=== PATIENT | female | born 2000 | race Caucasian/White ===

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

== ENCOUNTER 2020-07-07 09:30 | Outpatient (CLI) | payer OTHER ==
--- NOTE | 2020-07-07 11:55 | Ultrasound Report ---
PROCEDURE: OB First Trimester INDICATIONS: POSITIVE TEST OUTSIDE/PRIOR DATING DATA: Last menstrual period (LMP): 04/22/2020. LMP-based estimated date of delivery (RENEE): 01/27/2021. First dating scan (date and location): 07/07/2020. Estimated date of delivery (RENEE) from first dating scan: 01/16/2021. TECHNIQUE: Real-time scanning was performed of the fetus and maternal pelvic organs, with image documentation. COMPARISON: None available at the time of this dictation FINDINGS: Embryo: There is an intrauterine gestational sac seen, with a pole present, which measures 5.9 cm, which corresponds to an estimated gestational age of 12 weeks 3 days. cardiac activity is seen, with a measured heart rate of 168 bpm. A small amount of perigestational/subchorionic hemorrh age can be seen, which measures 1.8 x 0.4 x 0.7 cm. A normal-appearing yolk sac can be seen. Measurement variability in dating: +/- 4 weeks by LMP, +/- 7 days by mean sac diameter (use before 6 weeks gestation if crown-rump length not able to be measured), +/- 5 days by crown-rump length (6-12 weeks gestation). Maternal organs: Ovaries are unremarkable. Limited images through the kidneys demonstrate no hydron ephrosis. IMPRESSION: Single live intrauterine . A small amount of subchorionic hemorrhage can be seen. There is a greater than one week discrepancy between the estimated gestational age based upon these i mages and the given date of the last menstrual period. Please correlate with precise clinical dating. Reviewed by: Angel Larsen MD on 07/07/2020 10:54 AM HEYDI Approved by: Angel Laresn MD on 07/07/2020 10:54 AM HEYDI Station ID: [id number]
== END 2020-07-07 09:31 | disposition home or self-care (01) ==
LOC: DI 09:30
PROVIDERS: ATTEND Advanced Practice Midwife
DX: O20.8 Other hemorrhage in early pregnancy (principal); Z3A.12 12 weeks gestation of pregnancy
CPT/HCPCS: 76801

== ENCOUNTER 2020-07-10 08:00 | Outpatient (CLI) | payer OTHER ==
[2020-07-10 16:10] LABS: BILIRUBIN,URINE NEGATIVE (NEGATIVE); GLUCOSE, URINE (UA) NEGATIVE (NEGATIVE); KETONES,URINE (UA) NEGATIVE (NEGATIVE); LEUKOCYTE ESTERASE, URINE SMALL (NEGATIVE); NITRITE,URINE NEGATIVE (NEGATIVE); OCCULT BLOOD,URINE NEGATIVE (NEGATIVE); PROTEIN,URINE NEGATIVE (NEGATIVE); UROBILINOGEN,URINE 0.2 (NORMAL) E.U./dL (NORMAL)
[2020-07-10 16:22] LABS: BACTERIA,URINE Few /HPF (None Seen); CLARITY,URINE CLEAR (CLEAR); RBC,URINE None Seen /HPF (0-5); SQUAMOUS EPITHELIAL CELL,UR MANY Squamous (<= Few)
== END 2020-07-10 23:59 | disposition home or self-care (01) ==
LOC: LAB.R 08:00
PROVIDERS: ATTEND Advanced Practice Midwife
DX: Z36.89 Encounter for other specified antenatal screening (principal); Z34.90 Encounter for supervision of normal pregnancy, unspecified, unspecified trimester
CPT/HCPCS: 81001; 87086

== ENCOUNTER 2020-07-10 10:06 | Outpatient (CLI) | payer OTHER ==
[2020-07-10 10:27] LABS: BASOPHILS % (AUTO) 0.5 %; EOSINOPHILS # (AUTO) 0.1 10^3/uL (0.0-0.7); EOSINOPHILS % (AUTO) 1.6 %; LYMPHOCYTES # (AUTO) 1.7 10^3/uL (1.5-3.5); LYMPHOCYTES % (AUTO) 20.9 %; MEAN CORPUSCULAR HEMOGLOBIN 28.7 pg (27.0-31.0); MEAN CORPUSCULAR HGB CONC 34.5 g/dL (32.0-36.0); MEAN CORPUSCULAR VOLUME 83.2 fL (81.0-99.0); MEAN PLATELET VOLUME 9.2 fL (7.9-10.8); MONOCYTES # (AUTO) 0.4 10^3/uL (0.0-1.0); MONOCYTES % (AUTO) 5.1 %; NEUTROPHILS # (AUTO) 5.8 10^3/uL (1.5-6.6); NEUTROPHILS % (AUTO) 71.7 %; PLT - PLATELET COUNT 291 10^3/uL (130-450); RED BLOOD COUNT 4.88 10^6/uL (4.20-5.40); RED CELL DISTRIBUTION WIDTH 12.2 % (12.0-15.0); WHITE BLOOD COUNT 8.1 x10^3/uL (4.8-10.8)
[2020-07-11 13:09] LABS: HEPATITIS C ANTIBODY NON-REACTIVE (NON-REACTIVE)
[2020-07-11 13:23] LABS: HEPATITIS B SURFACE ANTIGEN NON-REACTIVE (NON-REACTIVE)
[2020-07-11 16:09] LABS: HIV AG/AB 4TH GEN NON-REACTIVE (NON-REACTIVE)
== END 2020-07-10 10:07 | disposition home or self-care (01) ==
LOC: LAB 10:06
PROVIDERS: ATTEND Advanced Practice Midwife
DX: Z34.90 Encounter for supervision of normal pregnancy, unspecified, unspecified trimester (principal); Z36.89 Encounter for other specified antenatal screening
CPT/HCPCS: 36415; 81599; 85025; 86592; 86762; 86787; 86803; 86850; 86900; 86901; 87340; 87389

== ENCOUNTER 2020-08-07 09:48 | Outpatient (CLI) | payer OTHER | END 2020-08-07 09:49 | disposition home or self-care (01) | LOC: LAB 09:48 | PROVIDERS: ATTEND Advanced Practice Midwife | DX: Z34.90 Encounter for supervision of normal pregnancy, unspecified, unspecified trimester (principal); Z36.89 Encounter for other specified antenatal screening | CPT/HCPCS: 36415; 81220; 81243; 81329; 81511; 81599 ==

== ENCOUNTER 2020-08-31 08:49 | Outpatient (CLI) | payer OTHER ==
--- NOTE | 2020-08-31 22:48 | Ultrasound Report ---
PROCEDURE: OB Detailed Eval INDICATIONS: SUPERVISION OF OUTSIDE/PRIOR DATING DATA: Last menstrual period (LMP): 04/22/2020. LMP-based estimated date of delivery (RENEE): 01/27/2021. First dating scan (date and location): 07/07/2020. Estimated date of delivery (RENEE) from first dating scan: 01/16/2021. TECHNIQUE: Real-time scanning was performed of the fetus, with image documentation and biometric measurements. Endovaginal scanning: Not performed COMPARISON: 07/07/2020 FINDINGS: General: A single living intrauterine gestation is present. Presentation: Breech Placenta: Placental position is anterior, without previa. Amniotic fluid index: 15 cm, 57th percentile for gestational age. Largest vertical pocket measured 5.1 cm. heart rate: 128 beats per minute. Maternal cervical canal: 6.4 cm long; normal length is 2.5 cm or more. biometrics: Biparietal diameter: 4.9 cm, correlating with 20 weeks and 6 days Head circumference: 18.3 cm, correlating with 20 weeks and 5 days Abdominal circumference: 15.3 cm, correlating with 20 weeks and 4 days Femur length: 3.1 cm, correlating with 19 weeks and 3 days Estimated gestational age from initial scan: not applicable. Composite gestational age from present scan: 20 weeks and 2 days Estimated weight and percentile: 334 [address] which [address] the fetus within the 36th percentile for g estational age. Measurement variability in biometric dating: +/- 10 days from 12-20 weeks gestation, +/- 2 weeks from 20-30 weeks gestation, +/- 3 weeks at 30 weeks gestation or later. Anatomic survey: Neuro: Ventricles are normal at less than 10 mm. Cisterna magna is normal at 3-11 mm. Cerebellum i s normal in size and morphology. Nuchal skin fold: Normal at less than 6 mm between 14 and 20 weeks gestational age. Face: Nose and lips, facial profile are normal. Spine: No evidence for spina bifida. Heart: 4-chambered heart is present, with normal ventricular outflow tracts. Diaphragm: Diaphragm is intact. Stomach: Left-sided stomach is present. Kidneys: No hydronephrosis. Normal is less than 5 mm in 2nd trimester, less than 7 mm in 3rd trimester. Cord: 3 vessel cord has orthotopic insertion. Bladder: Normal in size. Extremities: All 4 extremities are visualized. IMPRESSION: 1. Single living intrauterine gestation with an estimated sonographic gestational age of approximatel y 20 weeks and 2 days. Expected interval growth has occurred. Estimated weight measures 334 g w hic places the fetus within the 36th percentile for gestational age. 2. Normal routine second trimester anatomic screening survey. Reviewed by: Pato Lam MD on 08/31/2020 10:46 PM PDT Approved by: Pato Lam MD on 08/31/2020 10:46 PM PDT Station ID: [id number]
== END 2020-08-31 08:50 | disposition home or self-care (01) ==
LOC: DI 08:49
PROVIDERS: ATTEND Advanced Practice Midwife
DX: Z34.90 Encounter for supervision of normal pregnancy, unspecified, unspecified trimester (principal); Z36.89 Encounter for other specified antenatal screening
CPT/HCPCS: 76811

== ENCOUNTER 2020-10-30 09:47 | Outpatient (CLI) | payer OTHER ==
[2020-10-30 11:17] LABS: HGB - HEMOGLOBIN 12.6 g/dL (12.0-16.0); MEAN CORPUSCULAR HEMOGLOBIN 29.6 pg (27.0-31.0); MEAN CORPUSCULAR HGB CONC 33.5 g/dL (32.0-36.0); MEAN CORPUSCULAR VOLUME 88.5 fL (81.0-99.0); MEAN PLATELET VOLUME 9.4 fL (7.9-10.8); RED BLOOD COUNT 4.25 10^6/uL (4.20-5.40); RED CELL DISTRIBUTION WIDTH 13.3 % (12.0-15.0)
== END 2020-10-30 09:48 | disposition home or self-care (01) ==
LOC: LAB 09:47
PROVIDERS: ATTEND Advanced Practice Midwife
DX: Z36.89 Encounter for other specified antenatal screening (principal)
CPT/HCPCS: 36415; 82950; 85027

== ENCOUNTER 2020-11-13 07:55 | Outpatient (CLI) | payer OTHER | END 2020-11-13 07:56 | disposition home or self-care (01) | LOC: LAB 07:55 | PROVIDERS: ATTEND Advanced Practice Midwife | DX: O99.810 Abnormal glucose complicating pregnancy (principal) | CPT/HCPCS: 36415; 82951; 82952 ==

== ENCOUNTER 2020-12-11 09:49 | Outpatient (CLI) | payer OTHER ==
[2020-12-11 09:59] VITALS: BP 121/75
--- NOTE | 2020-12-11 11:26 | PROVIDER PROGRESS NOTE ---
- HPI Chief Complaint: Vaginal bleeding Current : Current EDU 01/16/21 Gestation 34 Weeks and 6 Days 1 Para 0 Vital Signs Temperature 36.8 C 12/11/20 09:56 Heart Rate 69 12/11/20 09:56 Respiratory Rate 18 12/11/20 09:56 Blood Pressure 121/75 12/11/20 09:56 O2 Saturation 98 12/11/20 09:56 Temperature 36.8 C 12/11/20 09:56 Heart Rate 69 12/11/20 09:56 Respiratory Rate 18 12/11/20 09:56 Blood Pressure 121/75 12/11/20 09:56 O2 Saturation 98 12/11/20 09:56 - Procedures NST Procedure: NST Procedure Start Date 12/11/20 Start Time 09:55 Stop Time 11:10 Vibroacoustic Stimulation Used No Patient States Movement Yes - Plan Plan: Linda is a 20yo at 34.6wks gestation who presents for vaginal bleeding. She reports brownish red bleeding x1 with wiping on rising this morning. None on her underwear, and non in the toilet. She endorses movement and denies any pain or contractions at this time. NST perform date: 12/10/20 NST read date: 12/10/20 Impression: Reactive Reports feeling mild tightening when ctx picked up on TOCO After monitoring and up to toilet, no increase in bleeding. Plan: Discharge home with labor precautions Educated to return or call if any further or worsening bleeding Final Diagnosis: Vaginal Bleeding in after 20wks
== END 2020-12-11 11:15 | disposition home or self-care (01) ==
LOC: WFO 09:49 → FBP 09:51 → WFO 11:15
PROVIDERS: ATTEND Advanced Practice Midwife
DX: O46.92 Antepartum hemorrhage, unspecified, second trimester (principal); Z3A.20 20 weeks gestation of pregnancy
CPT/HCPCS: 99213

== ENCOUNTER 2020-12-25 08:00 | Outpatient (CLI) | payer OTHER | END 2020-12-25 23:59 | disposition home or self-care (01) | LOC: LAB.R 08:00 | PROVIDERS: ATTEND Nurse Practitioner Obstetrics & Gynecology | DX: Z36.85 Encounter for antenatal screening for Streptococcus B (principal) | CPT/HCPCS: 87797 ==

== ENCOUNTER 2020-12-25 12:24 | Outpatient (CLI) | payer OTHER ==
[2020-12-25 13:02] VITALS: BP 113/73
--- NOTE | 2020-12-26 11:27 | PROCEDURE REPORT ---
- HPI Current EDU 01/16/21 Gestation 36 Weeks and 6 Days 1 Para 0 Vital Signs Temperature 37.3 C 12/25/20 12:36 Heart Rate 75 12/25/20 12:36 Respiratory Rate 16 12/25/20 12:36 Blood Pressure 123/81 H 12/25/20 12:36 O2 Saturation 98 12/25/20 12:36 Temperature 37.3 C 12/25/20 12:36 Heart Rate 75 12/25/20 12:36 Respiratory Rate 16 12/25/20 12:36 Blood Pressure 113/73 12/25/20 13:02 O2 Saturation 98 12/25/20 12:36 - NST Procedure NST Procedure Start Date 12/25/20 Start Time 12:32 Stop Time 13:05 Vibroacoustic Stimulation Used No Patient States Movement Yes - Results and Plan Findings/Impression: Linda is a 20yo at 36.6wks gestation who presents for vaginal bleeding. She reports reddish brown bleeding on her underwear today, with none in the toilet. She endorses movement and denies any pain or contractions at this time. NST perform date: 12/25/2020 NST read date: 12/25/2020 Impression: Reactive Reports feeling mild tightening when ctx picked up on TOCO After monitoring and up to toilet, no further bleeding. Plan: Discharge home with labor precautions Educated to return or call if any further or worsening bleeding Final Diagnosis: Vaginal Bleeding in after 20wks
== END 2020-12-25 14:30 | disposition home or self-care (01) ==
LOC: WFO 12:24 → FBP 12:25 → WFO 14:30
PROVIDERS: ATTEND Advanced Practice Midwife
DX: O46.8X3 Other antepartum hemorrhage, third trimester (principal); Z36.85 Encounter for antenatal screening for Streptococcus B; Z3A.36 36 weeks gestation of pregnancy
CPT/HCPCS: 87797; 99212

== ENCOUNTER 2020-12-26 04:25 | Inpatient (IN) | payer OTHER ==
[2020-12-26] MEDS ORDERED: fentaNYL 100 MCG/2 ML VIAL IVP PRN (05:02)
[2020-12-26] MEDS ORDERED: METHYLERGONOVINE 0.2 MG/ML VIAL IM PRN (05:02)
[2020-12-26] MEDS ORDERED: SODIUM CHLORIDE FLUSH 0.9% 10 ML SYRINGE IVP PRN (05:02)
[2020-12-26] MEDS ORDERED: OXYTOCIN 10 UNIT/ML VIAL IM PRN (05:02)
[2020-12-26] MEDS ORDERED: LIDOCAINE-MPF 1% 30 ML VIAL ID PRN (05:02)
[2020-12-26] MEDS ORDERED: ONDANSETRON 4 MG/2 ML VIAL IVP PRN ×2 (05:02→06:23)
[2020-12-26] MEDS ORDERED: CARBOPROST TROMETHAMINE 250 MCG/ML AMP IM PRN (05:02)
[2020-12-26] MEDS ORDERED: TRANEXAMIC ACID IN NACL 1,000 MG/100 ML BAG IV PRN (05:02)
[2020-12-26] MEDS ORDERED: miSOPROStoL 200 MCG TABLET BC PRN (05:02)
[2020-12-26] MEDS ORDERED: OXYTOCIN/SODIUM CHLORIDE 500 ML IV PRN ×2 (05:02)
[2020-12-26] MEDS ORDERED: METOCLOPRAMIDE 10 MG/2 ML VIAL IVP PRN ×2 (05:02→06:23)
[2020-12-26] MEDS: LACTATED RINGERS 1,000 ML IV SCH ×2 (05:40→10:15)
[2020-12-26 05:53] LABS: BASOPHILS # (AUTO) 0.1 10^3/uL (0.0-0.1); BASOPHILS % (AUTO) 0.4 %; EOSINOPHILS # (AUTO) 0.1 10^3/uL (0.0-0.7); EOSINOPHILS % (AUTO) 0.9 %; HGB - HEMOGLOBIN 14.4 g/dL (12.0-16.0); LYMPHOCYTES # (AUTO) 2.8 10^3/uL (1.5-3.5); LYMPHOCYTES % (AUTO) 20.3 %; MEAN CORPUSCULAR HEMOGLOBIN 29.6 pg (27.0-31.0); MEAN CORPUSCULAR HGB CONC 34.5 g/dL (32.0-36.0); MEAN CORPUSCULAR VOLUME 85.8 fL (81.0-99.0); MEAN PLATELET VOLUME 10.6 fL (7.9-10.8); MONOCYTES # (AUTO) 0.9 10^3/uL (0.0-1.0); MONOCYTES % (AUTO) 6.2 %; NEUTROPHILS # (AUTO) 9.8 10^3/uL (1.5-6.6); NEUTROPHILS % (AUTO) 71.5 %; PLT - PLATELET COUNT 197 10^3/uL (130-450); RED BLOOD COUNT 4.86 10^6/uL (4.20-5.40); WHITE BLOOD COUNT 13.7 x10^3/uL (4.8-10.8)
[2020-12-26] MEDS ORDERED: TERBUTALINE 1 MG/ML VIAL SUBQ SCH (06:00)
[2020-12-26] MEDS ORDERED: ROPIVACAINE 0.2% 200 MG/100 ML BAG EP ONE (06:07)
[2020-12-26] MEDS ORDERED: NALBUPHINE 10 MG/ML AMP IVP PRN (06:23)
[2020-12-26] MEDS ORDERED: diphenhydrAMINE INJ 50 MG/ML VIAL IVP PRN (06:23)
[2020-12-26] MEDS ORDERED: ePHEDrine 50 MG/ML VIAL IVP PRN (06:23)
[2020-12-26] MEDS ORDERED: ROPIVACAINE 0.2% 200 MG/100 ML BAG EP PRN (06:23)
[2020-12-26] MEDS ORDERED: NALOXONE 0.4 MG/ML VIAL IVP PRN (06:23)
--- NOTE | 2020-12-26 07:11 | HISTORY & PHYSICAL EXAMINATION ---
Admit History - Visit Reason Visit Reason: Contractions - : 1 Parity: 0 Premature: 0 Ectopic: 0 : 0 Care: positive: Other ([facility]) Risk/History: positive: None Complications This : positive: None Smoking Status: Never smoker - Mother's Labs Mother's Blood Type: positive: B Mother's RH: positive: Positive GBS: positive: Other (GBS collected and not yet resulted) Rubella Status: positive: Immune Meds/Allgy - Allergies Allergies/Adverse Reactions: Allergies Allergy/AdvReac Type Severity Reaction Status Date / Time No Known Drug Allergies Allergy Verified 12/26/20 05:15 Review of Systems - All Other Systems All Other Systems: reports: Reviewed and negative Physical - Abdominal Exam Vital Signs: Temp Pulse Resp BP Pulse Ox 36.5 C 61 18 123/94 H 98 12/26/20 05:36 12/26/20 05:36 12/26/20 05:36 12/26/20 05:36 12/26/20 04:41 Contraction Frequency (min/apart): 4-6min Contraction Intensity: positive: Moderate Uterine Resting Tone: positive: Soft - Monitoring Heart Rate Baseline: 135 Strip Review: positive: Category I - Presentation Presentation: positive: Vertex - Vaginal Exam Membranes: positive: Membranes intact Dilation (in cm): 5 Effacement (%): 90 Station: positive: -1 Cervical Position: positive: Anterior - Other Notes Labor Progress Note/Additional Text: -20yo at 37.0 wks gestation who presents to Labor and Delivery with complaints of contractions that started around 0200 and intensified, prompting her to present to L&D around 0430 -Reports movement -Denies ctx/VB/LOF - care with [facility] which has been adequate - Complications *GBS unknown- collected at 36.5wks- awaiting results *VZV non-immune- vax to be offered -Dating Criteria * Initial U/S: at 12.3wks not c/w LMP (01/27/2021) for final RENEE of 01/16/2021 -OB Hx *G1: current -Medications * vitamin-daily -Allergies *NKDA *Pollen *Shellfish (mild) -Medical History *[place]-Schlatters *Acne vulgaris -Surgical History *ORIF of Left arm- 2011 -Family History *Mother- Endometriosis, family history of HTN -Social History *Non contributory - Labs, Immunizations, and Findings Initial U/S: at 12.3wks not c/w LMP (01/27/2021) for final RENEE of 01/16/2021 B pos/Rubella immune VZV-non immune offer , patient aware Gentic testing: Quad- neg; CF(Fragile x, SMA)- neg FAS: 08/31/20 WNL. Posterior placenta, no previa. ZANDER WNL. 3VC. Size c/w dating. Glucola imaired 1 hour 158; 3hr GTT WNL (92, 133, 151, 157) TDAP 10/30/2020 Influenza declined GBS collected @ 36.5wks gestation HSV: denies self and partner Breast pump Rx provided MOD: . Desires epidural. FOB: Joseph. LOLI Lynch. pp contraception: POPs PAP: 07/10/2020-neg -SVE per RN 5/90%/-1 -Vertex by digital exam -EFW by joe's 7-7.5# -FHTs per flowsheet -Assessment *20yo at 37.0wks in active labor * Heart Tones- Category I -Plan *Admit to L&D *Monitoring- Continuous *Comfort measures available- position changes, whirlpool tub, fentanyl, and epidural per maternal preference *Diet/Activity- per maternal preference *Anticipate Plan for Labor - Plan For Labor I expect patient to be DC'd or transferred within 96 hours.: Yes
[2020-12-26] MEDS ORDERED: HYDROCORTISONE 1% CREAM 28 GM TUBE PR PRN (12:59)
[2020-12-26] MEDS ORDERED: WITCH HAZEL/GLYCERIN 1 PAD TOP PRN (12:59)
[2020-12-26] MEDS: ACETAMINOPHEN 500 MG TABLET PO SCH (13:00)
--- NOTE | 2020-12-26 13:08 | DELIVERY NOTE ---
Delivery Note - Labor Labor: positive: Spontaneous - Delivery Method Delivery Method: positive: Spontaneous vaginal delivery - Presentation Presentation: positive: Vertex, OA - occiput anterior - Nuchal Cord Nuchal Cord: positive: Present (delivered through) - Anesthetic Anesthetic Type: - Amniotic Fluid Description Amniotic Fluid Description: positive: Clear - Laceration Laceration: positive: 1st degree, Perineal, Periurethral - Suture Suture Type: positive: Vicryl Suture Size: positive: 3-0 - Delivery Outcome Delivery Outcome: positive: Livebirth - [place]: positive: Placed in direct skin contact with mother, Stimulated, Adger used sex: positive: Male : 9 : 9 - Cord Cord: positive: 3 vessels - Placenta Placenta: positive: Intact, Spontaneous - Estimated Blood Loss Estimated Blood Loss (in cc): 100 - Post Delivery Events Post Delivery Events: positive: No post delivery events - Delivery Comments (Free Text/Narrative) Delivery Comments (Free Text/Narrative): Note: Labor: This 20 year old, , @37.0 wks gestation by 12.3 week Ultrasound, confirmed by LMP, presented @ approx. 0430 in active labor. Cervix was 5/90-1 and vertex. FHR pattern demonstrated 130 baseline in a Category I pattern. Normal labor course. Epidural placed upon maternal request. SROM occurred @ 1115 and amount and color of fluid were noted to be moderate and clear. Unknown GBS : Normal of a 3295gm male named Evelio on 01/05/2021 @ 1231. Nuchal present but baby birthed through with assistance of FOB after delivery of the head. The was placed on maternal abdomen, stimulated, dried and placed skin to skin. Apgars 9 at one minute and 9 at five minutes. The umbilical cord was allowed to stop pulsating at which time it was doubly clamped by CNM and cut by FOB. Pitocin administered via IV for hemostasis.. Fundal massage and gentle cord traction applied for active third stage management. Cord blood was obtained. Placenta delivered spontaneously and intact at 1242. Three vessel cord. EBL 100mL. Fourth Stage: Uterine fundus firm and without excessive bleeding. The perineum, vagina, and cervix were inspected and found to have sustained a first degree right periurethral tear, and a small first degree perineal tear, both were repaired with 3-0 vicryl in standard fashion under sterile conditions.. Vaginal examination following repair was done. Tissues well approximated. initiated. Family bonding well. Both mother and baby are in stable condition.
[2020-12-26] MEDS: IBUPROFEN 600 MG TABLET PO SCH ×2 (18:13→23:41)
[2020-12-27] MEDS: IBUPROFEN 600 MG TABLET PO SCH ×4 (06:35→23:47)
[2020-12-27] MEDS: DOCUSATE SODIUM 100 MG CAPSULE PO PRN ×2 (08:03→21:09)
--- NOTE | 2020-12-27 11:00 | PROVIDER PROGRESS NOTE ---
Subjective - Prog Note Date Prog Note Date: 12/27/20 Prog Note Time: 10:52 - Subjective Pt reports feeling: Improved Subjective: S: Linda is resting in the recliner, holding sleeping baby, supportive at her side. She reports was a bit of a struggle last night, however the last two feeds have gone really well. Baby just breastfed for 30mins. She reports her bleeding as "like a heavy period" with changing her pad approx every two hours (which it is never full). O: Lochia Rubra A: 20yo s/p on pp day 1 well Normal recovery P: Continue with routine care Evaluate for discharge home tomorrow Objective - Vital Signs/Intake & Output Vital Signs: Vital Signs x48h Temp Pulse Resp BP 12/27/20 07:40 36.7 C 65 17 119/75 Intake & Output: Intake & Output 12/24/20 12/25/20 12/26/20 12/27/20 23:59 23:59 23:59 23:59 Intake Total 687.5 Output Total 1525 Balance -837.5 - Lab Results Fish Bones: 12/26/20 05:30 Other Labs: Lab Results x24hrs 12/26/20 Range/Units 07:20 Coronavirus (PCR) NEGATIVE
[2020-12-27] MEDS: ACETAMINOPHEN 500 MG TABLET PO SCH (20:00)
[2020-12-28] MEDS: IBUPROFEN 600 MG TABLET PO SCH ×2 (06:04→12:23)
[2020-12-28 07:31] VITALS: BP 114/71
[2020-12-28] MEDS: ACETAMINOPHEN 500 MG TABLET PO SCH (08:51)
[2020-12-28] MEDS: DOCUSATE SODIUM 100 MG CAPSULE PO PRN (08:51)
--- NOTE | 2020-12-28 09:42 | DISCHARGE SUMMARY ---
Discharge Summary Discharge Date: 12/28/20 Condition at Discharge: Good Discharge Disposition: 01 Home, Self Care - HPI History of Present Illness: Admit Date 12/26/2020 Discharge Date 12/28/2020 Diagnosis on Admission: 1. A 20yo at 37.0 week intrauterine 2. Early Active Labor 3. GBS unknown Diagnosis on Discharge 1. A 20yo s/p spontaneous vaginal delivery on 12/26/2020 2. Normal recovery 3. GBS negative 4. VZV non-immune Brief History: She is a patient at [facility] who presented on 12/26/2020 with complaints of contractions. The patient was found to contract every 1 to 5 minutes and her cervix was 5cm dilated, 90%effaced, and -1 station. She as augmented with pitocin and spontaneously delivered a viable 3295g male infant named Evelio. Apgars were 9 and 9- and 1 and 5 minutes respectively. EBL 100mL. The patient has a small 1st degree laceration that was repaired with 3-0 vicryl in usual fashion under sterile conditions. She has been doing well in her course. She is ambulating and tolerating a regular diet. She is urinating without difficulty and her lochia is normal. Her pain is well controlled with oral medications. She will be discharged home today on day #2 without need for prescriptions. She intends to follow up with Midwifery at [facility] in 1, and 6 weeks for routine visit. She has been given precautions to call if she has any worsening fevers, chills, abdominal pain, increased bleeding or foul smelling vaginal lochia. - ALLERGIES Allergies/Adverse Reactions: Allergies Allergy/AdvReac Type Severity Reaction Status Date / Time No Known Drug Allergies Allergy Verified 12/26/20 05:15 - LABS Result Diagrams: 12/26/20 05:30
--- NOTE | 2020-12-28 09:42 | Discharge Plan ---
Discharge Plan Problem Reviewed?: Yes Disposition: Home, Self Care Condition: Good Additional Instructions or Follow Up instructions: Follow up with Midwifery in 1 and 6 weeks No Smoking: If you smoke, Please STOP! Call for help. Follow-up with: Loraine Moser ARNP [Provider Admit Priv/Credential] -
--- NOTE | 2020-12-28 13:36 | Labor Flowsheet ---
Labor Flowsheet Datetime Report Generated by CPN: 12/28/2020 13:36 Datetime: 12/28/2020 07:14 VITAL SIGNS NBP Sys/Jonelle/Mean (mmHg): 114 : 71 : 78 Pulse: 65 Datetime: 12/26/2020 14:30 SpO2 (%): 100 PAIN Pain Scale: 0 Datetime: 12/26/2020 13:15 Temperature (C): 36.7 Datetime: 12/26/2020 12:41 Patient Care Comments: repair Datetime: 12/26/2020 12:34 Stage of : Recovery MEDICATIONS Medication Comments: pit up Datetime: 12/26/2020 12:31 LaborFlag: Antepartum Datetime: 12/26/2020 12:26 UTERINE ACTIVITY Monitor Mode: External Frequency (min): 2-3 Quality: Strong Duration (sec): 60+ Pattern: Normal: <= 5 Contractions in 10 Minutes Resting Tone (Palpate): Relaxed ASSESSMENT A Monitor Mode: Telemetry FHR Baseline Changes: No Baseline Change Variability: Moderate 6-25 bpm Accelerations: None Decelerations: None Datetime: 12/26/2020 12:07 STAGE 2 Pushing: Coached on Pushing; Urge to Push Pushing Position: Pushing with Contractions Pushing Progress: Descent with Pushing Stage 2 Comments: Start pushing Datetime: 12/26/2020 12:00 Actions for Decelerations: Sterile Vaginal Exam; Provider Notified Category: Category II Pain Presence: None/Denies Anesthesia Level Check: T9 Datetime: 12/26/2020 11:59 VAGINAL EXAM Dilatation (cm): 10.0 Effacement (%): 100 Station: 3 Exam by: H. Ehsan Datetime: 12/26/2020 11:49 Monitor Interventions for UA: [place] Adjusted Datetime: 12/26/2020 11:48 Monitor Interventions for FHR: Ultrasound Adjusted Datetime: 12/26/2020 11:33 Communication Comments: lab called for GBS result. GBS is still pending and will not be resulted t ill sometime tonight. Loraine updated will tx pt. as unknown for now. Datetime: 12/26/2020 11:30 Comments: short periods of minimal variability then back to moderate Datetime: 12/26/2020 11:21 Hygiene: [facility] Datetime: 12/26/2020 11:15 Membrane Status: Ruptured Membranes Rupture Method: Spontaneous Amniotic Fluid Color: Clear Amniotic Fluid Amount: Moderate Amniotic Fluid Odor: None Datetime: 12/26/2020 11:12 Patient Position/Activity: Left Lateral Datetime: 12/26/2020 11:00 FHR Baseline Rate : 120 Datetime: 12/26/2020 10:01 Contraction Comments: coupling Datetime: 12/26/2020 09:07 Vaginal Bleeding: Normal Show Cervix, Position: Anterior Datetime: 12/26/2020 08:30 Pain Coping: Sleeping Datetime: 12/26/2020 07:30 I/O Interventions: Nichols Cath Inserted Datetime: 12/26/2020 07:04 COMMUNICATION Communication: Report Given to @ carolynRN Datetime: 12/26/2020 06:50 Pain Relief Measures: Epidural Given Datetime: 12/26/2020 06:33 Provider Reviewed Strip: Yes Notification Reason: Status Update; Status; Labor Status; Pain Datetime: 12/26/2020 06:30 Oxygen Method: Room Air Datetime: 12/26/2020 06:16 Respirations: 22 Datetime: 12/26/2020 06:15 Epidural Procedure Other: Pump Started Datetime: 12/26/2020 06:09 Epidural Procedure: Test Dose Datetime: 12/26/2020 06:04 PROCEDURE TIME OUT Procedure Verify: Correct Patient Identity; Correct Side and Site are Marked; Accurate Procedure Co nsent Form; Agreement on Procedure to be Done; Correct Patient Position; Relevant Images and Results are Properly Labeled and Displayed; Addressed Need to Administer Antibiotics or Fluids for Irrigation ; Safety Precautions Based on Patient History or Medication Use ANESTHESIA Anesthesia Plans: Epidural Epidural Positioning: Sitting Datetime: 12/26/2020 05:30 Pain Type: Contraction Pain Location: Abdomen; Back Pain Assessment Comments: requests epidural, [employer] called PATIENT CARE IV/Blood Work: IV Started; IV Bolus Started; IV Bolus Given ml @ 999; Labs Drawn with IV Start; IV Bag Number @ 1 Comfort Measures: Breathing/Relaxation; Coaching
== END 2020-12-28 13:34 | disposition home or self-care (01) | DRG 807 ==
LOC: WFO 04:25 → FBP 04:31 → WFO 05:01 → FBP 05:13
PROVIDERS: ADMIT Advanced Practice Midwife; ATTEND Advanced Practice Midwife
PROC: 10E0XZZ Delivery of Products of Conception, External Approach (ICD-10-PCS; principal; 2020-12-26)
DX: O70.0 First degree perineal laceration during delivery (principal); Z37.0 Single live birth; O69.81X0 Labor and delivery complicated by cord around neck, without compression, not applicable or unspecified; Z3A.37 37 weeks gestation of pregnancy; Z20.822 Contact with and (suspected) exposure to COVID-19
CPT/HCPCS: 36415; 85025; 86850; 86900; 86901; 87635; 99213; A9270; J7120

== ENCOUNTER 2023-01-23 16:19 | Outpatient (CLI) | payer OTHER ==
[2023-01-23 16:39] VITALS: BP 120/82
--- NOTE | 2023-01-23 17:15 | PROVIDER PROGRESS NOTE ---
- HPI Chief Complaint: Labor Current : Vital Signs Temperature 98.6 F 01/23/23 16:26 Heart Rate 98 01/23/23 16:26 Respiratory Rate 16 01/23/23 16:26 Blood Pressure 120/82 H 01/23/23 16:26 Temperature 98.6 F 01/23/23 16:27 Heart Rate 98 01/23/23 16:27 Respiratory Rate 16 01/23/23 16:27 Blood Pressure 120/82 H 01/23/23 16:27 O2 Saturation 100 01/23/23 16:27 If not protocol: Oxygen Flow, liters/minute - Procedures OB Procedure Performed: NST Diagnosis/Indication for NST: labor NST Procedure: NST Procedure Start Time 12:32 Stop Time 13:05 EFM: 140s, moderate variability, positive 15x15 accelerations, variable deceleration [place]: no contractions NST reactive/Cat 1 tracing Performed and read 01/23/23 Service Date of procedure: 01/23/23 - Plan Plan: 22yo at 34.6w presenting with contractions earlier today. Denies contractions currently. Denies leaking fluid or bleeding. Good movement. care at and uncomplicated. VSS GEN: NAD CV: Regular rate Resp: Breathing unlabored Abd: soft, nt Ext: nt 22yo at 34.6w, false labor. - NST reactive - Labor precautions reviewed. 12/2020 at 37.0w. Recommended light activities at this time. - Follow up this week as scheduled 01/29
== END 2023-01-23 17:21 | disposition home or self-care (01) ==
LOC: WFO 16:19 → FBP 16:21 → WFO 17:21
PROVIDERS: ATTEND Obstetrics & Gynecology
DX: O47.03 False labor before 37 completed weeks of gestation, third trimester (principal); Z3A.34 34 weeks gestation of pregnancy
CPT/HCPCS: 59025; 99213

== ENCOUNTER 2023-01-29 08:00 | Outpatient (CLI) | payer OTHER | END 2023-01-29 23:59 | disposition home or self-care (01) | LOC: LAB.R 08:00 | PROVIDERS: ATTEND Obstetrics & Gynecology | DX: Z34.83 Encounter for supervision of other normal pregnancy, third trimester (principal); Z36.89 Encounter for other specified antenatal screening | CPT/HCPCS: 87797 ==

== ENCOUNTER 2023-02-02 13:51 | Outpatient (CLI) | payer OTHER ==
[2023-02-02 14:46] VITALS: BP 114/72
--- NOTE | 2023-02-02 16:03 | PROCEDURE REPORT ---
- HPI Diagnosis/Indication for NST: labor Current EDU 02/28/23 Gestation 36 Weeks and 2 Days 2 Para 1 Vital Signs Temperature 98.1 F 02/02/23 14:13 Heart Rate 96 02/02/23 14:13 Respiratory Rate 16 02/02/23 14:13 Blood Pressure 114/72 02/02/23 14:13 Temperature 98.1 F 02/02/23 14:13 Heart Rate 96 02/02/23 14:13 Respiratory Rate 16 02/02/23 14:13 Blood Pressure 114/72 02/02/23 14:13 O2 Saturation If not protocol: Oxygen Flow, liters/minute - NST Procedure NST Procedure Start Date 02/02/23 Start Time 14:16 Stop Time 14:54 Vibroacoustic Stimulation Used No Patient States Movement Yes: decreased from normal activity EFM: 130s, moderate variability, positive 15x15 accelerations, one variable deceleration [place]: occasional contractions NST reactive/Cat 1 Performed and read on 02/02/23 - Results and Plan Plan: 22yo at 36.2w presenting with occasionally painful contractions all day. Denies leaking fluid or vaginal bleeding. Good movement. care uncomplicated. VSS GEN: NAD CV: Regular rate Resp: Breathing unlabored Abd: soft, nt Ext: nt SVE 1/50/-3 posterior 22yo at 36.2w, false labor - NST reactive - Discharge to home with labor precautions - Follow up 1w
== END 2023-02-02 15:10 | disposition home or self-care (01) ==
LOC: WFO 13:51 → FBP 13:53 → WFO 15:10
PROVIDERS: ATTEND Obstetrics & Gynecology
DX: O47.03 False labor before 37 completed weeks of gestation, third trimester (principal); Z3A.36 36 weeks gestation of pregnancy
CPT/HCPCS: 59025; 99213

== ENCOUNTER 2023-02-12 15:50 | Outpatient (CLI) | payer OTHER ==
[2023-02-12 16:41] VITALS: BP 113/74
--- NOTE | 2023-02-12 17:24 | PROCEDURE REPORT ---
- HPI Diagnosis/Indication for NST: labor Vital Signs Temperature 98.4 F 02/12/23 16:07 Heart Rate 85 02/12/23 16:07 Respiratory Rate 20 02/12/23 16:07 Blood Pressure 113/74 02/12/23 16:07 Temperature 98.4 F 02/12/23 16:07 Heart Rate 84 02/12/23 16:07 Respiratory Rate 20 02/12/23 16:07 Blood Pressure 113/74 02/12/23 16:07 O2 Saturation If not protocol: Oxygen Flow, liters/minute - NST Procedure NST Procedure Start Time 14:16 Stop Time 14:54 Baseline 140 Moderate variability Presents acceleration Absent deceleration - Results and Plan Findings/Impression: Reactive nonstress test Plan: Her cervical changes not present and she does not seem to have any more uterine contractions therefore she will be discharged home today and she will be seen at the clinic for already scheduled appointment
--- NOTE | 2023-02-12 17:31 | PROVIDER PROGRESS NOTE ---
- HPI Chief Complaint: Labor Check (She was checked at the clinic last week and cervix was 1 cm. Today at the clinic she was found to be 3 cm and she was having some mild contractions. She came to the unit today because she noticed some vaginal bleeding. Monitoring showed that she has a category 1 heart tone.) Current : Vital Signs Temperature 98.4 F 02/12/23 16:07 Heart Rate 85 02/12/23 16:07 Respiratory Rate 20 02/12/23 16:07 Blood Pressure 113/74 02/12/23 16:07 Temperature 98.4 F 02/12/23 16:07 Heart Rate 84 02/12/23 16:07 Respiratory Rate 20 02/12/23 16:07 Blood Pressure 113/74 02/12/23 16:07 O2 Saturation If not protocol: Oxygen Flow, liters/minute Cervix 3 cm,30% effacement and -3 station was noted. Vertex presentation - Procedures NST Procedure: NST Procedure Start Time 14:16 Stop Time 14:54 Findings: Reactive nonstress test - Plan Plan: Home today and follow-up at the clinic
== END 2023-02-12 17:30 | disposition home or self-care (01) ==
LOC: WFO 15:50 → FBP 15:52 → WFO 17:30
PROVIDERS: ATTEND Obstetrics & Gynecology
DX: O46.93 Antepartum hemorrhage, unspecified, third trimester (principal); Z3A.37 37 weeks gestation of pregnancy
CPT/HCPCS: 59025; 99215

== ENCOUNTER 2023-02-18 14:53 | Inpatient (IN) | payer OTHER ==
[2023-02-18] MEDS ORDERED: lidocaine 1% 20 ML MDV ID PRN (17:58)
[2023-02-18] MEDS ORDERED: TERBUTALINE 1 MG/ML VIAL SUBQ PRN (17:58)
[2023-02-18] MEDS ORDERED: OXYTOCIN 10 UNIT/ML VIAL IM PRN (17:58)
[2023-02-18] MEDS ORDERED: SODIUM CHLORIDE FLUSH 0.9% 10 ML SYRINGE IVP PRN (17:58)
[2023-02-18] MEDS ORDERED: fentaNYL 100 MCG/2 ML VIAL IVP PRN (17:58)
[2023-02-18] MEDS ORDERED: hydrALAZINE INJ 20 MG/ML VIAL IVP PRN ×2 (17:58)
[2023-02-18] MEDS ORDERED: LABETALOL 20 MG/4 ML SYRINGE IVP PRN ×3 (17:58)
[2023-02-18] MEDS ORDERED: miSOPROStoL 200 MCG TABLET PR PRN (17:58)
[2023-02-18] MEDS ORDERED: CARBOPROST TROMETHAMINE 250 MCG/ML AMP IM PRN (17:58)
[2023-02-18] MEDS ORDERED: TRANEXAMIC ACID IN NACL 1,000 MG/100 ML BAG IV PRN (17:58)
[2023-02-18] MEDS ORDERED: NIFEdipine 10 MG CAPSULE PO PRN (17:58)
[2023-02-18] MEDS ORDERED: miSOPROStoL 200 MCG TABLET BC PRN (17:58)
[2023-02-18] MEDS ORDERED: OXYTOCIN/SODIUM CHLORIDE 500 ML IV PRN (17:58)
[2023-02-18] MEDS ORDERED: METHYLERGONOVINE 0.2 MG/ML VIAL IM PRN (17:58)
[2023-02-18] MEDS ORDERED: SODIUM CHLORIDE FLUSH 0.9% 10 ML SYRINGE IVP SCH (18:00)
[2023-02-18] MEDS ORDERED: LACTATED RINGERS 1,000 ML IV SCH ×2 (18:00→22:00)
--- NOTE | 2023-02-18 18:06 | HISTORY & PHYSICAL EXAMINATION ---
Admit History - Visit Reason Visit Reason: Contractions - : 2 Parity: 1 Risk/History: positive: None Complications This : positive: None Smoking Status: Never smoker - Mother's Labs Mother's Blood Type: positive: B Mother's RH: positive: Positive GBS: positive: Group B Step Negative Rubella Status: positive: Immune Meds/Allgy - Allergies Allergies/Adverse Reactions: Allergies Allergy/AdvReac Type Severity Reaction Status Date / Time shellfish derived Allergy Hives Verified 01/23/23 17:43 Physical - Abdominal Exam Vital Signs: Temp Pulse Resp BP Pulse Ox O2 Flow Rate 97.6 F L 95 16 121/80 100 02/18/23 17:39 02/18/23 17:39 02/18/23 17:39 02/18/23 17:39 02/18/23 17:39
--- OUTSIDE RECORDS SUMMARY | 2023-02-18 18:06 | EXTERNAL MEDICAL SUMMARY RPT | Continuity of Care Document ---
:2000 Author Organization [facility] Address [address] [place] [address] Phone Care Team Providers Name Role Phone Unavailable Unavailable Unavailable Alan Gallo Md Unavailable Unavailable Cayabyab Do, Jacinta Unavailable Unavailable Xavier Relations Liaison, Gretel Unavailable Unavailable Darion, Provider Unavailable Unavailable Prince Hannonn, Gretel Unavailable Unavailable Joanne Gifford Rn Unavailable Unavailable Allergies No information. Encounters No information. Functional Status No information. Immunizations No information. Medications No information. Problems date description facility 2022-12-18 00:00 [facility] 2022-12-18 00:00 [facility] 2022-12-18 00:00 [facility] 2022-12-18 00:00 [facility] 2022-12-18 00:00 Mult[facility] All 2022-12-18 00:00 Mult[facility]rav[facility] All 2022-12-18 00:00 Supervision of other normal All 2022-12-18 00:00 Supervision of other normal All 2022-12-18 00:00 Supervision of other normal All 2022-12-18 00:00 Supervision of other normal All 2022-12-18 00:00 Supervision of other normal All 2022-12-18 00:00 Supervision of other normal All 2022-12-18 00:00 Encounter for supervision of other norm al , All third trimester 2022-12-18 00:00 Encounter for supervision of other norm al , All third trimester 2022-12-18 00:00 Encounter for supervision of other norm al , All third trimester 2022-12-18 00:00 Encounter for supervision of other norm al , All third trimester 2022-12-18 00:00 Encounter for supervision of other norm al , All third trimester 2022-12-18 00:00 Encounter for supervision of other norm al , All third trimester 2023-01-01 00:00 Gestation period, 31 weeks All 2023-01-01 00:00 Gestation period, 31 weeks All 2023-01-01 00:00 Gestation period, 31 weeks All 2023-01-01 00:00 Gestation period, 31 weeks All 2023-01-01 00:00 Encounter for unspecified scr eening of All mother 2023-01-01 00:00 Encounter for unspecified scr eening of All mother 2023-01-01 00:00 Encounter for unspecified scr eening of All mother 2023-01-01 00:00 Encounter for unspecified scr eening of All mother 2023-01-01 00:00 31 weeks gestation of All 2023-01-01 00:00 31 weeks gestation of All 2023-01-01 00:00 31 weeks gestation of All 2023-01-01 00:00 31 weeks gestation of All 2023-01-15 00:00 Gestation period, 33 weeks All 2023-01-15 00:00 Gestation period, 33 weeks All 2023-01-15 00:00 Encounter for unspecified scr eening of All mother 2023-01-15 00:00 Encounter for unspecified scr eening of All mother 2023-01-15 00:00 33 weeks gestation of All 2023-01-15 00:00 33 weeks gestation of All Procedures date description facility 2022-12-18 00:00 Visit Code Hold All 2022-12-18 00:00 Visit Code Hold All 2022-12-18 00:00 Visit Code Hold All 2022-12-18 00:00 Visit Code Hold All 2022-12-18 00:00 Visit Code Hold All 2022-12-18 00:00 Visit Code Hold All 2023-01-29 00:00 GBSPCR All 2023-01-29 00:00 GBSPCR All 2022-12-18 00:00 First Ix admin via ID IM or jet injects with All counseling by physician for adult 2022-12-18 00:00 First Ix admin via ID IM or jet injects with All counseling by physician for adult 2022-12-18 00:00 First Ix admin via ID IM or jet injects with All counseling by physician for adult 2022-12-18 00:00 First Ix admin via ID IM or jet injects with All counseling by physician for adult 2022-12-18 00:00 First Ix admin via ID IM or jet injects with All counseling by physician for adult 2022-12-18 00:00 First Ix admin via ID IM or jet injects with All counseling by physician for adult 2022-12-18 00:00 [facility]rix Intramuscular Suspension 5-2.5 -18.5 All 2022-12-18 00:00 Boostrix Intramuscular Suspension 5-2.5 -18.5 All 2022-12-18 00:00 Boostrix Intramuscular Suspension 5-2.5 -18.5 All 2022-12-18 00:00 Boostrix Intramuscular Suspension 5-2.5 -18.5 All 2022-12-18 00:00 Boostrix Intramuscular Suspension 5-2.5 -18.5 All 2022-12-18 00:00 Boostrix Intramuscular Suspension 5-2.5 -18.5 All Results/Labs test date author facility value unit interpret ation Result panel 1 (unknown) (no date) (unknown) All (no value) (units unknown ) (unknown) Result panel 2 (unknown) (no date) (unknown) All (no value) (units unknown ) (unknown) Social History date description facility 2022-12-18 00:00 Never smoker All 2022-12-18 00:00 Never smoker All 2022-12-18 00:00 Never smoker All 2022-12-18 00:00 Never smoker All 2022-12-18 00:00 Never smoker All 2022-12-18 00:00 Never smoker All Vital Signs date measurement value units 2022-12-18 00:00 BMI 25.40 kg/m2 2022-12-18 00:00 BP_diastolic 68 mmHg 2022-12-18 00:00 BP_systolic 122 mmHg 2022-12-18 00:00 height_metric 170.18 cm 2022-12-18 00:00 height_standard 67 in 2022-12-18 00:00 temperature_metric 37.11 C 2022-12-18 00:00 temperature_standard 98.8 F 2022-12-18 00:00 weight_metric 73.3 kg 2022-12-18 00:00 weight_standard 161.6 lb 2023-01-01 00:00 BMI 26.19 kg/m2 2023-01-01 00:00 BP_diastolic 60 mmHg 2023-01-01 00:00 BP_systolic 118 mmHg 2023-01-01 00:00 height_metric 170.18 cm 2023-01-01 00:00 height_standard 67 in 2023-01-01 00:00 temperature_metric 37.06 C 2023-01-01 00:00 temperature_standard 98.7 F 2023-01-01 00:00 weight_metric 75.57 kg 2023-01-01 00:00 weight_standard 166.6 lb 2023-01-15 00:00 BMI 26.88 kg/m2 2023-01-15 00:00 BP_diastolic 74 mmHg 2023-01-15 00:00 BP_systolic 118 mmHg 2023-01-15 00:00 height_metric 170.18 cm 2023-01-15 00:00 height_standard 67 in 2023-01-15 00:00 temperature_metric 36.5 C 2023-01-15 00:00 temperature_standard 97.7 F 2023-01-15 00:00 weight_metric 77.56 kg 2023-01-15 00:00 weight_standard 171 lb 2023-01-29 00:00 BMI 27.35 kg/m2 2023-01-29 00:00 BP_diastolic 68 mmHg 2023-01-29 00:00 BP_systolic 110 mmHg 2023-01-29 00:00 height_metric 170.18 cm 2023-01-29 00:00 height_standard 67 in 2023-01-29 00:00 temperature_metric 35.89 C 2023-01-29 00:00 temperature_standard 96.6 F 2023-01-29 00:00 weight_metric 78.93 kg 2023-01-29 00:00 weight_standard 174 lb 2023-02-04 00:00 BMI 27.89 kg/m2 2023-02-04 00:00 BP_diastolic 70 mmHg 2023-02-04 00:00 BP_systolic 120 mmHg 2023-02-04 00:00 height_metric 170.18 cm 2023-02-04 00:00 height_standard 67 in 2023-02-04 00:00 temperature_metric 37.11 C 2023-02-04 00:00 temperature_standard 98.8 F 2023-02-04 00:00 weight_metric 80.47 kg 2023-02-04 00:00 weight_standard 177.4 lb
[2023-02-18] MEDS ORDERED: LACTATED RINGERS 500 ML IV ONE (19:00)
[2023-02-18] MEDS ORDERED: ROPIVACAINE 0.2% 200 MG/100 ML BAG EP ONE (19:06)
[2023-02-18 19:15] LABS: BASOPHILS % (AUTO) 0.3 %; EOSINOPHILS % (AUTO) 0.3 %; HCT - HEMATOCRIT 38.5 % (37.0-47.0); HGB - HEMOGLOBIN 13.1 g/dL (12.0-16.0); LYMPHOCYTES % (AUTO) 8.6 %; MEAN CORPUSCULAR HEMOGLOBIN 29.1 pg (27.0-31.0); MEAN CORPUSCULAR VOLUME 85.6 fL (81.0-99.0); MEAN PLATELET VOLUME 10.4 fL (7.9-10.8); MONOCYTES % (AUTO) 5.6 %; NEUTROPHILS % (AUTO) 84.7 %; PLT - PLATELET COUNT 228 10^3/uL (130-450); RED CELL DISTRIBUTION WIDTH 13.2 % (12.0-15.0); WHITE BLOOD COUNT 20.8 x10^3/uL (4.8-10.8)
[2023-02-18 19:16] LABS: ABNORMAL LYMPHS % (MANUAL) 0 %; BAND NEUTROPHILS % (MANUAL) 0 %
[2023-02-18] MEDS ORDERED: METOCLOPRAMIDE 10 MG/2 ML VIAL IVP PRN (19:41)
[2023-02-18] MEDS ORDERED: ONDANSETRON 4 MG/2 ML VIAL IVP PRN (19:41)
[2023-02-18] MEDS ORDERED: NALBUPHINE 10 MG/ML AMP IVP PRN (19:41)
[2023-02-18] MEDS ORDERED: diphenhydrAMINE INJ 50 MG/ML VIAL IVP PRN (19:41)
[2023-02-18] MEDS ORDERED: ePHEDrine 50 MG/ML VIAL IVP PRN (19:41)
[2023-02-18] MEDS ORDERED: ROPIVACAINE 0.2% 200 MG/100 ML BAG EP PRN (19:41)
[2023-02-18] MEDS ORDERED: NALOXONE 0.4 MG/ML VIAL IVP PRN (19:41)
--- NOTE | 2023-02-18 19:41 | ANESTHESIA ---
Pre-Anesthesia VS, & Labs - Diagnosis active labor - Procedure labor epidural Vital Signs: Temp Pulse Resp BP Pulse Ox O2 Flow Rate 36.4 C L 93 20 121/80 100 02/18/23 18:31 02/18/23 18:31 02/18/23 18:31 02/18/23 17:39 02/18/23 17:39 Height: 5 ft 8 in Weight (kg): 83.007 kg Body Mass Index: 27.8 BMI Classification: Overweight - NPO >8 hours - Is Patient ?: Yes - Lab Results Current Lab Results: Laboratory Tests 02/18/23 18:50: WBC 20.8 H, RBC 4.50, Hgb 13.1, Hct 38.5, MCV 85.6, MCH 29.1, MCHC 34.0, RDW 13.2, Plt Count 228, MPV 10.4 Lab results reviewed: Yes Fish Bones: 02/18/23 18:50 Home Medications and Allergies Active Medications Carboprost Tromethamine (Carboprost Tromethamine 250 Mcg/Ml Amp) 250 mcg IM .ONCE PRN PRN Reason: Hemorrhage Fentanyl (Fentanyl 100 Mcg/2 Ml Vial) 50 mcg IVP Q1H PRN PRN Reason: Severe Pain (score 7-10) Hydralazine HCl (Hydralazine Inj 20 Mg/Ml Vial) 10 mg IVP .ONCE PRN; Protocol PRN Reason: SBP> or= 160 OR DBP> or= 110 Hydralazine HCl (Hydralazine Inj 20 Mg/Ml Vial) 5 - 10 mg IVP Q20M PRN; Protocol PRN Reason: SBP> or= 160 OR DBP> or= 110 Oxytocin/Sodium Chloride (Pitocin/Sodium Chloride) 500 mls @ 999 mls/hr IV PRN PRN; Protocol PRN Reason: POST- HEMORR PREVENTION Tranexamic Acid (Tranexamic 1,000 Mg/100ml-Nacl) 1,000 mg in 100 mls @ 600 mls/hr IV Q30M PRN PRN Reason: EBL >1200mL and within 3hr Lactated Ringer's (Lr) 1,000 mls @ 125 mls/hr IV .Q8H LAUREN Labetalol HCl (Labetalol 20 Mg/4 Ml Syringe) 20 mg IVP .ONCE PRN; Protocol PRN Reason: SBP> or= 160 OR DBP> or= 110 Labetalol HCl (Labetalol 20 Mg/4 Ml Syringe) 20 - 80 mg IVP Q10M PRN; Protocol PRN Reason: SBP> or= 160 OR DBP> or= 110 Labetalol HCl (Labetalol 20 Mg/4 Ml Syringe) 20 - 40 mg IVP Q10M PRN; Protocol PRN Reason: SBP> or= 160 OR DBP> or= 110 Lidocaine HCl (Lidocaine 1% 20 Ml Mdv) 20 ml ID .ONCE PRN PRN Reason: PERINEAL REPAIR Stop: 02/21/23 17:59 Methylergonovine Maleate (Methylergonovine 0.2 Mg/Ml Vial) 0.2 mg IM .ONCE PRN PRN Reason: Hemorrhage Misoprostol (Misoprostol 200 Mcg Tablet) 600 mcg BC .ONCE PRN PRN Reason: Hemorrhage Misoprostol (Misoprostol 200 Mcg Tablet) 800 mcg CO .ONCE PRN PRN Reason: Hemorrhage Nifedipine (Nifedipine 10 Mg Capsule) 10 - 20 mg PO Q20M PRN; Protocol PRN Reason: SBP> or= 160 OR DBP> or= 110 Oxytocin (Oxytocin 10 Unit/Ml Vial) 10 unit IM .ONCE PRN PRN Reason: Step One if no IV access. Sodium Chloride (Sodium Chloride Flush 0.9% 10 Ml Syringe) 10 ml IVP Q8H LAUREN Sodium Chloride (Sodium Chloride Flush 0.9% 10 Ml Syringe) 10 ml IVP PRN PRN PRN Reason: NEEDED PER PROVIDER ORDERS Terbutaline Sulfate (Terbutaline 1 Mg/Ml Vial) 0.25 mg SUBQ .ONCE PRN PRN Reason: Tachystole Allergies/Adverse Reactions: Allergies Allergy/AdvReac Type Severity Reaction Status Date / Time shellfish derived Allergy Hives Verified 01/23/23 17:43 Anes History & Medical History - Anesthetic History Anesthesia Complications: reports: No previous complications Family history of Anesthesia Complications: Denies Family history of Malignant Hyperthermia: Denies - Medical History Cardiovascular: reports: None Pulmonary: reports: None Gastrointestinal: reports: None Urinary: reports: None Neuro: reports: None Musculoskeletal: reports: None Smoking Status: Never smoker - Surgical History Orthopedic: reports: Other (ORIF L wrist) - Obstetrical History : 2 Parity: 1 Events: reports: None Complications: reports: None Exam General: Alert, Oriented x3, Cooperative, Moderate distress Dental: WNL Mouth Openin Fingerbreadth Neck Mobility: Normal Mallampati classification: II Thyromental Distance: 4-6 cm Respiratory: Lungs clear Cardiovascular: Regular rate Plan Anesthesia Type: Epidural Consent for Procedure(s) Verified and Reviewed: Yes Code Status: Attempt Resuscitation ASA classification: 2-Mild systemic disease Is this case an emergency?: No
[2023-02-18 19:51] LABS: LYMPHOCYTES # (MANUAL) 2.5 10^3/uL (1.5-3.5); LYMPHOCYTES % (MANUAL) 12 %; MONOCYTES # (MANUAL) 0.8 10^3/uL (0.0-1.0); NEUTROPHILS # (MANUAL) 17.5 10^3/uL (1.5-6.6)
[2023-02-18 19:52] LABS: DIFFERENTIAL COMMENT MANUAL DIFFERENTIAL; PLATELET ESTIMATE, MANUAL NORMAL (130-450,000) (NORMAL); PLATELET MORPHOLOGY NORMAL APPEARANCE (NORMAL); RBC MORPHOLOGY (MULTIPLE) NORMAL APPEARANCE (NORMAL)
[2023-02-18] MEDS ORDERED: WITCH HAZEL/GLYCERIN 1 PAD TOP PRN (21:10)
[2023-02-18] MEDS ORDERED: HYDROCORTISONE 1% CREAM 28 GM TUBE PR PRN (21:10)
--- NOTE | 2023-02-18 21:18 | DELIVERY NOTE ---
Delivery Note - Labor Labor: positive: Spontaneous, Augmented by ARM (AROM 1930, clear) - Delivery Method Delivery Method: positive: Spontaneous vaginal delivery - Presentation Presentation: positive: Vertex, MAGUE - right occiput anterior - Nuchal Cord Nuchal Cord: positive: None - Anesthetic Anesthetic Type: - Amniotic Fluid Description Amniotic Fluid Description: positive: Clear - Episiotomy Type Episiotomy Type: positive: None - Laceration Laceration: positive: None - Delivery Outcome Delivery Outcome: positive: Livebirth - [place] : positive: Placed in direct skin contact with mother, Bulb syringe, Stimulated, Warmed, [place] used sex: positive: Male - Cord Cord: positive: 3 vessels - Placenta Placenta: positive: Intact, Spontaneous - Estimated Blood Loss Estimated Blood Loss (in cc): 100 - Post Delivery Events Post Delivery Events: positive: No post delivery events - Delivery Comments (Free Text/Narrative) Delivery Comments (Free Text/Narrative): 100/0. Maternal pushing with good efforts. Head delivered. Body did not easily deliver with gentle traction and head retraction against perineum. Shoulder dystocia identified. Andrea manuever. Posterior shoulder attempted to deliver but did not. Rotational maneuvers started. Patient pushed again and body delivered with ease. Time from head to body 20 seconds. Baby placed on mother's abdomen. Delayed cord clamping. Fundus firm. Placenta delivered. Vagina and perineum inspected, no lacerations. Family bonding at bedside doing well. Apgars 7/9.
[2023-02-18] MEDS: IBUPROFEN 800 MG TABLET PO SCH (23:08)
[2023-02-18] MEDS: ACETAMINOPHEN 500 MG TABLET PO SCH (23:08)
[2023-02-19] MEDS: IBUPROFEN 800 MG TABLET PO SCH ×3 (04:51→16:37)
[2023-02-19] MEDS: ACETAMINOPHEN 500 MG TABLET PO SCH ×2 (08:42→16:37)
[2023-02-19] MEDS ORDERED: DOCUSATE SODIUM 100 MG CAPSULE PO SCH (09:00)
--- NOTE | 2023-02-19 17:48 | Discharge Plan ---
Discharge Plan Problem Reviewed?: Yes Disposition: Home, Self Care Condition: Good Diet: Regular Activity Restrictions: No Restrictions Shower Restrictions: No Driving Restrictions: No Weight Bearing: Full Weight Instruction Topics: Vaginal After, Depression , Bottle Feed How To No Smoking: If you smoke, Please STOP! Call for help. Follow-up with: Jacinta White DO [Provider Admit Priv/Credential] -
--- NOTE | 2023-02-19 17:51 | DISCHARGE SUMMARY ---
"Discharge Summary Admit Date: 02/18/23 Discharge Date: 02/19/23 Discharging Provider: Jacinta White DO Code Status: Attempt Resuscitation Condition at Discharge: Good Discharge Disposition: 01 Home, Self Care Discharge Facility Name: [facility] - DIAGNOSES Admission Diagnoses: 22yo at 38.4w in active labor - HPI History of Present Illness: 22yo at 38.4w presented to [facility] in active labor. course uncomplicated. She was admitted. Received epidural. AROM. Progressed to 10cm. , complicated by shoulder dystocia. See delivery notes. Recovering well and feels ready to go home PPD#1. Comfortable. Appropriate lochia. Formula feeding. Mood is good. care, depression reviewed. - CONSULTS | PROCEDURES Consultations: Anesthesia Procedures: Epidural - HOSPITAL COURSE Hospital Course: 22yo at 38.4w presented to [facility] in active labor. course uncomplica trevor. She was admitted. Received epidural. AROM. Progressed to 10cm. , complicated by shoulder dystocia. See delivery notes. Recovering well and feels ready to go home PPD#1. Comfortable. Appropriate lochia. Formula feeding. Mood is good. care, depression reviewed. - ALLERGIES Allergies/Adverse Reactions: Allergies Allergy/AdvReac Type Severity Reaction Status Date / Time shellfish derived Allergy Hives Verified 01/23/23 17:43 - PHYSICAL EXAM AT DISCHARGE General Appearance: positive: No acute distress Eyes Bilateral: positive: EOMI ENT: positive: No signs of dehydration Neck: positive: Nml inspection Respiratory: positive: No respiratory distress Abdomen: positive: Non-tender Skin: positive: Color nml Extremities: positive: Non-tender Neurologic/Psychiatric: positive: Oriented x3 - LABS Result Diagrams: 02/18/23 18:50 - QUALITY (Female Hip Fx Only) Was patient sent home on osteoporosis medication?: No - FOLLOW UP Follow Up: 2 weeks in - TIME SPENT Time Spent in Discharge (Minutes): 30"
[2023-02-19 20:25] VITALS: BP 110/77
--- NOTE | 2023-02-19 20:41 | Labor Flowsheet ---
Labor Flowsheet Datetime Report Generated by CPN: 02/19/2023 20:41 Datetime: 02/19/2023 20:20 VITAL SIGNS NBP Sys/Jonelle/Mean (mmHg): 110 : 77 : 85 Pulse: 66 LaborFlag: Labor Datetime: 02/19/2023 08:15 SpO2 (%): 99 Datetime: 02/18/2023 20:28 Pushing Position: Pushing with Contractions; Pushing Lithotomy Datetime: 02/18/2023 20:21 STAGE 2 Pushing: Coached on Pushing Datetime: 02/18/2023 20:19 I/O Interventions: Nichols Discontinued Datetime: 02/18/2023 20:16 COMMUNICATION Communication: Provider at Bedside Datetime: 02/18/2023 19:58 VAGINAL EXAM Dilatation (cm): 10.0 Effacement (%): 100 Station: 0 Exam by: Daljit-Rotundo RN Datetime: 02/18/2023 19:50 Communication Comments: feels pressure Datetime: 02/18/2023 19:37 PATIENT CARE Patient Position/Activity: High Fowlers Datetime: 02/18/2023 19:35 Patient Care Comments: By Dr. C Datetime: 02/18/2023 19:32 Membrane Status: Ruptured Membranes Rupture Method: Spontaneous Vaginal Bleeding: Normal Show Datetime: 02/18/2023 19:27 Amniotic Fluid Color: Clear Amniotic Fluid Amount: Moderate Datetime: 02/18/2023 19:21 Anesthesia Comments: lying down left tilt Datetime: 02/18/2023 19:17 Epidural Procedure: Test Dose Datetime: 02/18/2023 19:12 ANESTHESIA Anesthesia Plans: Epidural Datetime: 02/18/2023 19:08 Epidural Positioning: Sitting
--- NOTE | 2023-02-24 11:10 | Labor Flowsheet ---
Labor Flowsheet Datetime Report Generated by CPN: 02/24/2023 11:10 Datetime: 02/19/2023 20:20 VITAL SIGNS NBP Sys/Jonelle/Mean (mmHg): 110 : 77 : 85 Pulse: 66 LaborFlag: Labor Datetime: 02/19/2023 08:15 SpO2 (%): 99 Datetime: 02/18/2023 20:28 Pushing Position: Pushing with Contractions; Pushing Lithotomy Datetime: 02/18/2023 20:21 STAGE 2 Pushing: Coached on Pushing Datetime: 02/18/2023 20:19 I/O Interventions: Nichols Discontinued Datetime: 02/18/2023 20:16 COMMUNICATION Communication: Provider at Bedside Datetime: 02/18/2023 19:58 VAGINAL EXAM Dilatation (cm): 10.0 Effacement (%): 100 Station: 0 Exam by: Daljit-Rotundo RN Datetime: 02/18/2023 19:50 Communication Comments: feels pressure Datetime: 02/18/2023 19:37 PATIENT CARE Patient Position/Activity: High Fowlers Datetime: 02/18/2023 19:35 Patient Care Comments: By Dr. C Datetime: 02/18/2023 19:32 Membrane Status: Ruptured Membranes Rupture Method: Spontaneous Vaginal Bleeding: Normal Show Datetime: 02/18/2023 19:27 Amniotic Fluid Color: Clear Amniotic Fluid Amount: Moderate Datetime: 02/18/2023 19:21 Anesthesia Comments: lying down left tilt Datetime: 02/18/2023 19:17 Epidural Procedure: Test Dose Datetime: 02/18/2023 19:12 ANESTHESIA Anesthesia Plans: Epidural Datetime: 02/18/2023 19:08 Epidural Positioning: Sitting
== END 2023-02-19 21:15 | disposition home or self-care (01) | DRG 807 ==
LOC: WFO 14:53 → FBP 14:55 → WFO 17:51 → FBP 17:52
PROVIDERS: ADMIT Obstetrics & Gynecology; ATTEND Obstetrics & Gynecology
PROC: 10907ZC Drainage of Amniotic Fluid, Therapeutic from Products of Conception, Via Natural or Artificial Opening (ICD-10-PCS; principal; 2023-02-18)
PROC: 10E0XZZ Delivery of Products of Conception, External Approach (ICD-10-PCS; 2023-02-18)
DX: O66.0 Obstructed labor due to shoulder dystocia (principal); Z37.0 Single live birth; Z3A.38 38 weeks gestation of pregnancy
CPT/HCPCS: 59025; 85025; 86850; 86900; 86901; 99215; A9270; J7120; 99214

== ENCOUNTER 2023-04-13 09:57 | Day surgery (SDC) | payer OTHER ==
[2023-04-13] MEDS ORDERED: BUPIVACAINE 0.25% PF 30 ML VIAL ONE (10:03)
[2023-04-13] MEDS ORDERED: BUPIVACAINE 0.5%-EPI 1:200000 PF 30 ML VIAL ONE (10:04)
[2023-04-13] MEDS ORDERED: ATROPINE ABBOJECT 1 MG/10 ML SYRINGE IVP PRN (10:22)
[2023-04-13] MEDS ORDERED: ONDANSETRON 4 MG/2 ML VIAL IVP PRN (10:22)
[2023-04-13] MEDS ORDERED: HYDROmorphone 0.5 MG/0.5 ML SYRINGE IVP PRN (10:22)
[2023-04-13] MEDS ORDERED: MORPHINE 2 MG/ML CARPUJECT IVP PRN (10:22)
[2023-04-13] MEDS ORDERED: NALOXONE 0.4 MG/ML VIAL IVP PRN (10:22)
[2023-04-13] MEDS ORDERED: PROPOFOL 200 MG/20 ML VIAL IVP ONE (10:22)
[2023-04-13] MEDS ORDERED: fentaNYL 100 MCG/2 ML VIAL IVP PRN (10:22)
[2023-04-13] MEDS ORDERED: fentaNYL 100 MCG/2 ML VIAL ONE ×2 (10:23→11:32)
[2023-04-13] MEDS ORDERED: ROCURONIUM 50 MG/5 ML VIAL ONE (10:23)
[2023-04-13] MEDS ORDERED: MIDAZOLAM 2 MG/2 ML VIAL ONE (10:23)
[2023-04-13 10:24] LABS: HCG UR QUAL NEGATIVE
[2023-04-13] MEDS ORDERED: LIDOCAINE 2%-EPI 1:100000 20 ML MDV ONE (10:27)
[2023-04-13] MEDS ORDERED: LACTATED RINGERS 1,000 ML IV ONE (10:32)
--- NOTE | 2023-04-13 10:34 | ANESTHESIA ---
Pre-Anesthesia VS, & Labs - Diagnosis desires sterilization - Procedure juanjo. salpingectomy Vital Signs: Temp Pulse Resp BP Pulse Ox O2 Flow Rate 36.5 C 95 16 118/76 96 04/13/23 10:16 04/13/23 10:16 04/13/23 10:16 04/13/23 10:16 04/13/23 10:16 Height: 5 ft 8 in Weight (kg): 71.9 kg Body Mass Index: 24.0 BMI Classification: Normal - NPO >8 hours - Is Patient ?: No Home Medications and Allergies Home Medications: Ambulatory Orders No Known Home Medications 04/09/23 Active Medications Atropine Sulfate (Atropine Abboject 1 Mg/10 Ml Syringe) 0.5 mg IVP Q5M PRN PRN Reason: Bradycardia Stop: 04/14/23 10:22 Fentanyl (Fentanyl 100 Mcg/2 Ml Vial) 25 - 50 mcg IVP Q5M PRN PRN Reason: BREAKTHROUGH PAIN (2nd Choice) Stop: 04/14/23 10:22 Hydromorphone HCl (Hydromorphone 0.5 Mg/0.5 Ml Syringe) 0.2 - 0.6 mg IVP Q5M PRN PRN Reason: PAIN (First Choice) Stop: 04/14/23 10:22 Lactated Ringer's (Lr) 1,000 mls @ 100 mls/hr IV .Q10H LAUREN Stop: 04/13/23 20:59 Morphine Sulfate (Morphine 2 Mg/Ml Carpuject) 2 - 4 mg IVP Q5M PRN PRN Reason: PAIN (3rd Choice) Stop: 04/14/23 10:22 Naloxone HCl (Naloxone 0.4 Mg/Ml Vial) 0.1 mg IVP Q2M PRN PRN Reason: RESP RATE <8 Stop: 04/14/23 10:22 Ondansetron HCl (Ondansetron 4 Mg/2 Ml Vial) 4 mg IVP ONCE PRN PRN Reason: N/V (First Choice) Stop: 04/14/23 10:22 No Known Home Medications 04/09/23 Allergies/Adverse Reactions: Allergies Allergy/AdvReac Type Severity Reaction Status Date / Time shellfish derived Allergy Hives Verified 01/23/23 17:43 Anes History & Medical History - Anesthetic History Anesthesia Complications: reports: No previous complications - Medical History Cardiovascular: reports: None Pulmonary: reports: None Gastrointestinal: reports: None Urinary: reports: None Neuro: reports: None Musculoskeletal: reports: None Endocrine/Autoimmune: reports: None Skin: reports: None Smoking Status: Never smoker Psychosocial: reports: No issues indicated History of Cancer?: No - Surgical History Eyes Ears Nose Throat (EENT): reports: Tonsil/Adenoidectomy Orthopedic: reports: Other Exam General: Alert, Oriented x3, Cooperative, No acute distress Dental: WNL Mouth Openin Fingerbreadth Neck Mobility: Normal Mallampati classification: II Thyromental Distance: 4-6 cm Mental/Cognitive Status: Alert/Oriented X3, Normal for patient Plan Anesthesia Type: General Consent for Procedure(s) Verified and Reviewed: Yes Code Status: Attempt Resuscitation ASA classification: 1-Healthy patient Is this case an emergency?: No
[2023-04-13] MEDS ORDERED: LACTATED RINGERS 1,000 ML IV SCH (11:00)
[2023-04-13] MEDS ORDERED: ONDANSETRON 4 MG/2 ML VIAL ONE (11:04)
[2023-04-13] MEDS ORDERED: DEXAMETHASONE 4 MG/ML VIAL ONE (11:04)
[2023-04-13] MEDS ORDERED: KETOROLAC 30 MG/ML VIAL ONE (11:04)
[2023-04-13] MEDS ORDERED: BUPIVACAINE 0.5% PF 30 ML VIAL SUBQ ONE ×2 (11:21)
[2023-04-13] MEDS ORDERED: LIDOCAINE MPF 2%-EPI 1:200000 20 ML VIAL SUBQ ONE ×2 (11:21)
[2023-04-13] MEDS ORDERED: SUGAMMADEX 200 MG/2 ML VIAL IVP ONE (12:16)
[2023-04-13] MEDS ORDERED: SILVER NITRATE APPLICATOR TOP ONE ×2 (12:36→12:37)
[2023-04-13] MEDS ORDERED: LACTATED RINGERS 950 ML IV ONE (12:50)
--- NOTE | 2023-04-13 12:57 | OPERATIVE REPORT ---
Operative Report - General Planned Procedure: Laparoscopic bilateral salpingectomy Pre-Op Diagnosis: Desires permanent sterilization Procedure Performed: Laparoscopic bilateral salpingectomy, right ovarian cyst incision and drainage Post Op Diagnosis: Desires permanent sterilization, right ovarian simple cyst - Procedure Note Primary Surgeon: Jacinta White DO Secondary Surgeon: Cyn Rodríguez NP; assistance required for retraction, safe completion Anesthesia Provider: Eliza Saldaña CRNA Anesthesia Technique: General LMA Pathology: Bilateral oviducts Estimated Blood Loss (mL): 40 Urine Output (mL): 100 Indications: Desires permanent sterilization Findings: Normal appearing uterus, oviducts, left ovary Right ovarian simple cyst Complications: None - Other Other Information/Narrative: Patient taken to OR where GETA obtained without difficulty. Placed in dorsal lithotomy position and prepped and draped in sterile fashion. [place] speculum placed in vagina and anterior lip of cervix grasped with single tooth tenaculum. [place] uterine manipulator placed. Tenaculum and speculum removed. Attention then turned to abdomen where 5mm vertical skin incision made in umbilical fold. Veress needle carefully introduced into peritoneal cavity. Intraperitoneal placement confirmed with drop test and drop in intraabdominal pressure with CO2 gas insufflation. Trocar and sleeve advanced without difficulty into abdomen where intraabdominal placement confirmed with laparoscope. Two additional 5mm incisions made in pelvis bilaterally and trocars introduced under direct visualization. 2% lidocaine with epinephrine/0.25% marcaine injection prior to skin incisions x3. Aforementioned findings noted. Left fallopian tube grasped and LigaSure device used for transection along mesosalpinx up to uterine cornu. This was repeated on the right fallopian tube. Tubes removed through left 5mm port. Right ovarian cys t noted ~4cm. Scissors used to shell out cyst from ovary. Cyst incidentally entered and clear fluid noted. Attempted to excise cyst wall but was unable to separate any cyst wall. Ovary and peritoneum irrigated and suctioned. Hemostasis within ovary. Hemostasis at all dissection sites. Trocars removed under direct visualization. Pneumoperitoneum released. Umbilical trocar removed. 5mm incisions x3 were closed with 4-0 monocryl and dermabond. Sponge, lap, needle, and instrument counts were correct x2. Patient taken to PACU in stable condition.
[2023-04-13] MEDS ORDERED: traMADol 50 MG TABLET PO ONE (13:00)
[2023-04-13 13:54] VITALS: BP 120/72
--- NOTE | 2023-04-13 16:12 | ANESTHESIA POST OP EVALUATION ---
Anesthesia Post Eval - Post Anesthesia Eval Vitals: Last Vital Signs Temp 36.5 C 04/13/23 13:53 Pulse 66 04/13/23 13:53 Resp 16 04/13/23 13:53 BP 120/72 04/13/23 13:53 Pulse Ox 100 04/13/23 13:53 O2 Flow Rate CV Function Including HR & BP: Stable Pain Control: Satisfactory Nausea & Vomiting: Negative Mental Status: Baseline Respiratory Status: Airway Patent Hydration Status: Satisfactory Anesthesia Complications: None
== END 2023-04-13 09:58 | disposition home or self-care (01) ==
LOC: SDS 09:57
PROVIDERS: ATTEND Obstetrics & Gynecology
PROC: 0U904ZZ Drainage of Right Ovary, Percutaneous Endoscopic Approach (ICD-10-PCS; 2023-04-13)
PROC: 0UT74ZZ Resection of Bilateral Fallopian Tubes, Percutaneous Endoscopic Approach (ICD-10-PCS; principal; 2023-04-13 11:00)
DX: Z30.2 Encounter for sterilization (principal); N83.291 Other ovarian cyst, right side
CPT/HCPCS: 58661; 58679; 81025; J7120